=== PATIENT | female | born 1960 | race Caucasian/White ===

== ENCOUNTER 2019-05-30 10:25 | Emergency (ER) | payer BC ==
[~2019-05-30] VITALS: Ht 162.6 cm; Wt 68.0 kg
[~2019-05-30 10:25] MED LIST: CELE-193 PO; CYCL-1 PO; LEVO175T2 PO; ROSU20TA2 PO; SUMA100T16 PO
[2019-05-30 10:54] LABS: BASOPHILS # (AUTO) 0.1 X10'3 (0-0.2); BASOPHILS % (AUTO) 1.4 % (0-1); EOSINOPHILS # (AUTO) 0.2 X10'3 (0-0.9); EOSINOPHILS % (AUTO) 3.1 % (0-6); HEMATOCRIT 42.8 % (35.0-45.0); HEMOGLOBIN 14.6 g/dl (12.0-16.0); LYMPHOCYTES # (AUTO) 1.4 X10'3 (1.1-4.8); MEAN CORPUSCULAR HEMOGLOBIN 33.1 PG (27.0-31.0); MEAN CORPUSCULAR HGB CONC 34.2 g/dL (33.0-36.5); MEAN CORPUSCULAR VOLUME 96.8 FL (78-98); MEAN PLATELET VOLUME 7.5 FL (7.4-10.4); MONOCYTES # (AUTO) 0.5 X10'3 (0-0.9); MONOCYTES % (AUTO) 6.4 % (2-12); NEUTROPHILS # (AUTO) 5.3 X10'3 (1.8-7.7); NEUTROPHILS % (AUTO) 70.1 % (42-75); PLATELET COUNT 345 X10'3 (140-440); RED BLOOD COUNT 4.42 X10'6 (4.20-5.60); RED CELL DISTRIBUTION WIDTH 12.9 % (11.5-14.5); WHITE BLOOD COUNT 7.6 X10'3 (4.5-11.0)
[2019-05-30 11:15] LABS: ALANINE AMINOTRANSFERASE 35 U/L (12-78); ALBUMIN 3.7 G/DL (3.4-5.0); ALKALINE PHOSPHATASE 119 IU/L (46-116); AMYLASE 63 U/L (25-115); ANION GAP 8 (8-16); ASPARTATE AMINO TRANSFERASE 18 U/L (10-37); BILIRUBIN,TOTAL 0.4 MG/DL (0.1-1.0); BLOOD UREA NITROGEN 8 MG/DL (7-18); BUN/CREATININE RATIO 8.4 (6.6-38.0); CALCIUM 9.6 MG/DL (8.5-10.1); CHLORIDE 106 MMOL/L (99-107); CREATININE 0.95 MG/DL (0.40-0.90); GLUCOSE 92 MG/DL (70-104); LIPASE 108 U/L (73-393); POTASSIUM 4.3 MMOL/L (3.5-5.1); SODIUM 140 MMOL/L (135-145); TOTAL CARBON DIOXIDE 26.2 MMOL/L (24-32); TOTAL PROTEIN 7.5 G/DL (6.4-8.2); eGFR 60 ML/MIN
[2019-05-30] MEDS ORDERED: ondansetron/PF 4mg/2ml inj IV ONE (11:20)
[2019-05-30] MEDS ORDERED: ketorolac trometh. 30mg/ml inj. IV ONE (11:20)
[2019-05-30] MEDS ORDERED: normal saline 1000ML IV soln IVB ONE (11:20)
[2019-05-30 11:39] LABS: CLARITY,URINE CLEAR (Clear); COLOR,URINE YELLOW (Yellow); GLUCOSE, URINE NEGATIVE (Neg); KETONES,URINE NEGATIVE (Neg); LEUKOCYTE ESTERASE ,URINE NEGATIVE (Neg); NITRITES, URINE NEGATIVE (Neg); OCCULT BLOOD,URINE NEGATIVE (Neg); PH,URINE 6.5 (4.8-8.0); PROTEIN,URINE NEGATIVE (Neg); UROBILINOGEN,URINE 0.2 E.U/dL (0.2-1.0)
[2019-05-30 11:42] LABS: UA COLLECTION TYPE CLN CATCH MIDSTREAM
--- NOTE | 2019-05-30 12:01 | NUR ---
PT TO CT VIA WHEELCHAIR PER ORDERS NOW
--- NOTE | 2019-05-30 12:43 | NUR ---
TIM NOTIFIED PT PAIN 04/18, RECEIVED VERBAL ORDER FOR 4 MG IV MORPHINE ONCE NOW, MIKE WILLIS
[2019-05-30] MEDS ORDERED: morphine 4 MG/ML inj SYRINge IV ONE (12:45)
[2019-05-30] MEDS ORDERED: ONDA4TAB6 PO (13:26)
[2019-05-30] MEDS ORDERED: HYDR-4383 PO (13:26)
[2019-05-30 13:40] VITALS: BP 160/91
== END 2019-05-30 13:35 | disposition home or self-care (01) ==
LOC: ER 10:26
DX: K80.20 Calculus of gallbladder without cholecystitis without obstruction (principal); R11.2 Nausea with vomiting, unspecified; R19.7 Diarrhea, unspecified; E78.00 Pure hypercholesterolemia, unspecified; Z90.710 Acquired absence of both cervix and uterus; Z98.51 Tubal ligation status; Z98.890 Other specified postprocedural states; Z88.0 Allergy status to penicillin; Z88.2 Allergy status to sulfonamides; Z79.899 Other long term (current) drug therapy
CPT/HCPCS: 36415; 74176; 80053; 81003; 82150; 83690; 85025; 85610; 96361; 96374; 96375; 99284; J1885; J2270; J2405; J7030

== ENCOUNTER 2019-06-08 10:22 | Emergency (ER) | payer BC ==
[~2019-06-08] VITALS: Ht 162.6 cm; Wt 67.4 kg
[~2019-06-08 10:22] MED LIST changes: +HYDR-4383 PO; +ONDA4TAB6 PO
[2019-06-08 11:03] LABS: BASOPHILS # (AUTO) 0.1 X10'3 (0-0.2); BASOPHILS % (AUTO) 1.3 % (0-1); EOSINOPHILS # (AUTO) 0.2 X10'3 (0-0.9); EOSINOPHILS % (AUTO) 4.3 % (0-6); HEMATOCRIT 44.8 % (35.0-45.0); HEMOGLOBIN 15.2 g/dl (12.0-16.0); LYMPHOCYTES # (AUTO) 1.2 X10'3 (1.1-4.8); MEAN CORPUSCULAR HEMOGLOBIN 32.9 PG (27.0-31.0); MONOCYTES # (AUTO) 0.4 X10'3 (0-0.9); MONOCYTES % (AUTO) 7.8 % (2-12); NEUTROPHILS # (AUTO) 3.7 X10'3 (1.8-7.7); NEUTROPHILS % (AUTO) 65.6 % (42-75); PLATELET COUNT 370 X10'3 (140-440); RED BLOOD COUNT 4.62 X10'6 (4.20-5.60); RED CELL DISTRIBUTION WIDTH 12.7 % (11.5-14.5); WHITE BLOOD COUNT 5.6 X10'3 (4.5-11.0)
[2019-06-08 11:04] LABS: CLARITY,URINE CLEAR (Clear); COLOR,URINE YELLOW (Yellow); GLUCOSE, URINE NEGATIVE (Neg); KETONES,URINE NEGATIVE (Neg); LEUKOCYTE ESTERASE ,URINE SMALL (Neg); NITRITES, URINE NEGATIVE (Neg); OCCULT BLOOD,URINE NEGATIVE (Neg); PROTEIN,URINE NEGATIVE (Neg); UROBILINOGEN,URINE 0.2 E.U/dL (0.2-1.0)
[2019-06-08 11:16] LABS: UA COLLECTION TYPE CLN CATCH MIDSTREAM
[2019-06-08 11:18] LABS: ALANINE AMINOTRANSFERASE 35 U/L (12-78); ALKALINE PHOSPHATASE 121 IU/L (46-116); ANION GAP 10 (8-16); ASPARTATE AMINO TRANSFERASE 22 U/L (10-37); BILIRUBIN,TOTAL 0.5 MG/DL (0.1-1.0); BLOOD UREA NITROGEN 9 MG/DL (7-18); BUN/CREATININE RATIO 8.6 (6.6-38.0); CALCIUM 9.6 MG/DL (8.5-10.1); CHLORIDE 105 MMOL/L (99-107); CREATININE 1.05 MG/DL (0.40-0.90); GLUCOSE 93 MG/DL (70-104); SODIUM 140 MMOL/L (135-145); TOTAL CARBON DIOXIDE 25.4 MMOL/L (24-32); TOTAL PROTEIN 7.9 G/DL (6.4-8.2); eGFR 54 ML/MIN
[2019-06-08 11:20] LABS: RBC,URINE NONE SEEN /HPF (0-2); WBC,URINE 0-4 /HPF (0-4)
[2019-06-08 11:21] LABS: BACTERIA,URINE FEW /HPF (Neg); MUCUS STRANDS NONE SEEN /LPF (Neg); SQUAMOUS EPITHELIAL CELL,UR MODERATE /LPF (FEW)
[2019-06-08 11:23] LABS: RENAL CELLS, URINE FEW /HPF; TRANSITIONAL EPI CELLS,URINE FEW /HPF; WBC CLUMPS,URINE FEW /HPF (NEGATIVE)
[2019-06-08] MEDS ORDERED: ketorolac trometh. 30mg/ml inj. IV ONE (11:40)
[2019-06-08] MEDS ORDERED: morphine 4 MG/ML inj SYRINge IV ONE (11:40)
[2019-06-08] MEDS ORDERED: mag hydrox/Alum hydrox/simeth 30ml oral suspension PO ONE (11:40)
[2019-06-08] MEDS ORDERED: normal saline 1000ml 1,000 ML IV ONE (11:40)
[2019-06-08] MEDS ORDERED: ondansetron/PF 4mg/2ml inj IV ONE (11:40)
[2019-06-08] MEDS ORDERED: LIDOcaine Viscous 15ml cup PO ONE (11:40)
[2019-06-08] MEDS ORDERED: pantoprazole 40 MG vial IV ONE (11:45)
[2019-06-08] MEDS ORDERED: famotidine/PF 10 mg/ml inj IV ONE (11:45)
[2019-06-08 12:09] LABS: LIPASE 107 U/L (73-393)
[2019-06-08] MEDS ORDERED: CefTRIAXone/D5W-Rocephin 1gm 50 ML IV ONE (12:25)
[2019-06-08] MEDS ORDERED: ciprofloxacin 250mg tablet PO ONE (12:45)
[2019-06-08] MEDS ORDERED: HYDROcodone/acetaminophen 5mg/325mg tablet PO ONE (13:15)
[2019-06-08] MEDS ORDERED: proCHLORperazine 10 MG/2 ml inj IV ONE (13:15)
[2019-06-08] MEDS ORDERED: HYDR-3965 PO (13:38)
[2019-06-08] MEDS ORDERED: CIPR-230 PO (13:38)
[2019-06-08] MEDS ORDERED: ONDA8TAB6 PO (13:38)
[2019-06-08] MEDS ORDERED: PANT-47 PO (13:38)
[2019-06-08 13:56] VITALS: BP 143/94
== END 2019-06-08 13:57 | disposition home or self-care (01) ==
LOC: ER 10:23
DX: K80.20 Calculus of gallbladder without cholecystitis without obstruction (principal); N39.0 Urinary tract infection, site not specified; R10.11 Right upper quadrant pain; E78.00 Pure hypercholesterolemia, unspecified; Z98.890 Other specified postprocedural states; Z90.710 Acquired absence of both cervix and uterus; Z98.51 Tubal ligation status; Z88.0 Allergy status to penicillin; Z88.2 Allergy status to sulfonamides; Z88.5 Allergy status to narcotic agent; Z79.899 Other long term (current) drug therapy
CPT/HCPCS: 36415; 80053; 81001; 83690; 84145; 85025; 85610; 87088; 96374; 96375; 99284; C9113; J0780; J1885; J2270; J2405; J3490; J7030

== ENCOUNTER 2019-06-26 12:21 | Day surgery (SDC) | payer BC ==
[~2019-06-26] VITALS: Ht 162.6 cm; Wt 66.0 kg
[2019-06-26] VITALS (8 sets, daily range): BP systolic 124–159; BP diastolic 71–95
[~2019-06-26 12:21] MED LIST changes: +CIPR-230 PO; +HYDR-3965 PO; +INDOCYANINE GREEN 25 MG VIAL IV ONE; +ONDA8TAB6 PO; +PANT-47 PO; +clindamycin-Cleocin 900mg/D5W 50 ML IV ONE
[2019-06-26 13:01] LABS: BASOPHILS # (AUTO) 0.1 X10'3 (0-0.2); BASOPHILS % (AUTO) 1.3 % (0-1); EOSINOPHILS # (AUTO) 0.4 X10'3 (0-0.9); EOSINOPHILS % (AUTO) 4.7 % (0-6); LYMPHOCYTES # (AUTO) 1.7 X10'3 (1.1-4.8); LYMPHOCYTES % (AUTO) 21.5 % (21-51); MEAN CORPUSCULAR HEMOGLOBIN 32.7 PG (27.0-31.0); MEAN CORPUSCULAR HGB CONC 33.4 g/dL (33.0-36.5); MEAN CORPUSCULAR VOLUME 97.9 FL (78-98); MEAN PLATELET VOLUME 8.5 FL (7.4-10.4); MONOCYTES # (AUTO) 0.5 X10'3 (0-0.9); MONOCYTES % (AUTO) 6.7 % (2-12); NEUTROPHILS # (AUTO) 5.3 X10'3 (1.8-7.7); NEUTROPHILS % (AUTO) 65.8 % (42-75); PRE OP HEMATOCRIT 45.9 % (35.0-45.0); PRE OP HEMOGLOBIN 15.3 g/dL (12.0-16.0); PRE OP PLATELET COUNT 371 X10'3 (140-440); RED BLOOD COUNT 4.69 X10'6 (4.20-5.60); RED CELL DISTRIBUTION WIDTH 13.1 % (11.5-14.5)
[2019-06-26 13:29] LABS: CHLORIDE 107 MMOL/L (99-107); PRE OP GLUCOSE 90 MG/DL (70-104); PRE OP POTASSIUM 4.5 MMOL/L (3.4-5.1); PRE OP SODIUM 142 MMOL/L (135-145); TOTAL CARBON DIOXIDE 23.5 MMOL/L (24-32)
[2019-06-26 13:30] LABS: ALBUMIN/GLOBULIN RATIO 1.1 (1.1-1.5); ALKALINE PHOSPHATASE 112 IU/L (46-116); BLOOD UREA NITROGEN 8 MG/DL (7-18); BUN/CREATININE RATIO 9.2 (6.6-38.0); CALCIUM 9.9 MG/DL (8.5-10.1); CREATININE 0.87 MG/DL (0.40-0.90); PRE OP ALT 28 U/L (30-65); PRE OP ANION GAP 12 (8-16); PRE OP AST 19 U/L (10-37); PRE OP BILIRUB, TOTAL 0.4 MG/DL (0.0-1.0); TOTAL PROTEIN 7.8 G/DL (6.4-8.2); eGFR 67 ML/MIN
[2019-06-26] MEDS ORDERED: ringers solution, lacted 1,000 ML IV SCH (14:13)
[2019-06-26] MEDS ORDERED: fentaNYL/PF 50MCG/1 ML 2ML syringe IV PRN ×2 (14:15)
[2019-06-26] MEDS ORDERED: ondansetron/PF 4mg/2ml inj IV PRN (14:15)
[2019-06-26] MEDS ORDERED: hydrALAZINE 20mg/ml inj. IV PRN (14:15)
[2019-06-26] MEDS ORDERED: labetalol 20mg/4ml (5mg/ml) syringe IV PRN (14:15)
[2019-06-26] MEDS ORDERED: morphine 4 MG/ML inj SYRINge IV PRN (14:15)
[2019-06-26] MEDS ORDERED: BUPIVAcaine/PF 2.5 mg/ml (0.25%) 30ml vial ONE (14:21)
[2019-06-26] MEDS ORDERED: LIDOcaine 1% 30ml preserv. free vial ONE (14:21)
[2019-06-26] MEDS ORDERED: ondansetron/PF 4mg/2ml inj ONE (14:34)
[2019-06-26] MEDS ORDERED: glycopyrrolate 0.2mg/ml inj ONE (14:34)
[2019-06-26] MEDS ORDERED: midazolam 2 mg/2 ml injection ONE (14:34)
[2019-06-26] MEDS ORDERED: fentaNYL/PF 50MCG/1 ML 2ML syringe ONE (14:34)
[2019-06-26] MEDS ORDERED: neostigmine methylsulfate 1 MG/ML 10ml vial ONE (14:34)
[2019-06-26] MEDS ORDERED: sevoflurane 250ml liquid IH ONE (14:34)
[2019-06-26] MEDS ORDERED: LIDOcaine 1%/PF 5ML 10 MG/ML VIAL ONE (14:35)
[2019-06-26] MEDS ORDERED: rocuronium 10mg/ml inj IV ONE (14:35)
[2019-06-26] MEDS ORDERED: propofol inj 20 ML IV ONE (14:35)
[2019-06-26] MEDS ORDERED: dexamethasone sod phosphate 4mg/ml inj. ONE (14:44)
[2019-06-26] MEDS ORDERED: sugammadex 200mg/2ml injection IV ONE (15:41)
--- NOTE | 2019-06-26 15:46 | NUR ---
Received from OR via , accompanied by Anesthesiologist DR WALKER and report given by Anesthesiolgist. AWAKENS TO VOICE. VITALS STABLE. DRESSINGS DI. JUMA PAIN. ABD SOFT.
[2019-06-26] MEDS: morphine 4 MG/ML inj SYRINge IV PRN ×2 (16:02→16:12)
[2019-06-26] MEDS ORDERED: HYDROcodone/acetaminophen 10/325mg tab PO ONE (16:05)
[2019-06-26] MEDS ORDERED: acetaminophen 1,000mg/100ml IV 100 ML IV ONE (16:30)
[2019-06-26] MEDS ORDERED: ketorolac trometh. 30mg/ml inj. IV ONE (16:30)
--- NOTE | 2019-06-26 17:06 | NUR ---
AWAKE AND ORIENTED. VITALS STABLE. DRESSING DI. STATES PAIN IMPROVING. HOME WITH HER SPOUSE AT THIS TIME.
[2019-06-27] MEDS ORDERED: ringers solution, lacted 1,000 ML IV SCH (05:00)
[2019-06-27] MEDS ORDERED: famotidine 20mg tablet PO ONE (05:30)
== END 2019-06-26 17:06 | disposition home or self-care (01) ==
LOC: PAS 12:21
PROVIDERS: ATTEND Surgery
DX: K80.10 Calculus of gallbladder with chronic cholecystitis without obstruction (principal); F17.210 Nicotine dependence, cigarettes, uncomplicated; G43.909 Migraine, unspecified, not intractable, without status migrainosus; F32.9 Major depressive disorder, single episode, unspecified; F41.9 Anxiety disorder, unspecified; E78.5 Hyperlipidemia, unspecified; E03.9 Hypothyroidism, unspecified; M19.90 Unspecified osteoarthritis, unspecified site; Z88.0 Allergy status to penicillin; Z88.5 Allergy status to narcotic agent; Z88.2 Allergy status to sulfonamides; Z79.899 Other long term (current) drug therapy; Z98.51 Tubal ligation status; Z90.710 Acquired absence of both cervix and uterus; Z98.890 Other specified postprocedural states
CPT/HCPCS: 36415; 47563; 74300; 80053; 85025; 93005; C9399; J0131; J1100; J1885; J2001; J2250; J2270; J2405; J2704; J3010; J3490; J7120; S2900; A4215; A4618; A7000; J2710

== ENCOUNTER 2024-12-10 21:22 | Emergency (ER) | payer BC ==
[~2024-12-10] VITALS: Ht 165.1 cm; Wt 100.0 kg
[~2024-12-10 21:22] MED LIST changes: -CIPR-230 PO; -HYDR-3965 PO; -HYDR-4383 PO; -INDOCYANINE GREEN 25 MG VIAL IV ONE; -ONDA8TAB6 PO; -PANT-47 PO; -clindamycin-Cleocin 900mg/D5W 50 ML IV ONE
[2024-12-10 22:11] LABS: BASOPHILS % (AUTO) 1.1 % (0-1); EOSINOPHILS # (AUTO) 0.3 X10'3 (0-0.9); EOSINOPHILS % (AUTO) 7.8 % (0-6); HEMOGLOBIN 14.8 g/dl (12.0-16.0); LYMPHOCYTES # (AUTO) 1.1 X10'3 (1.1-4.8); MEAN CORPUSCULAR HEMOGLOBIN 32.5 PG (27.0-31.0); MEAN CORPUSCULAR HGB CONC 34.3 g/dL (33.0-36.5); MEAN CORPUSCULAR VOLUME 94.7 FL (78-98); MONOCYTES # (AUTO) 0.4 X10'3 (0-0.9); MONOCYTES % (AUTO) 9.9 % (2-12); NEUTROPHILS # (AUTO) 2.4 X10'3 (1.8-7.7); NEUTROPHILS % (AUTO) 56.2 % (42-75); PLATELET COUNT 262 X10'3 (140-440); RED BLOOD COUNT 4.54 X10'6 (4.20-5.60); RED CELL DISTRIBUTION WIDTH 12.9 % (11.5-14.5); WHITE BLOOD COUNT 4.4 X10'3 (4.5-11.0)
[2024-12-10 22:33] LABS: ALANINE AMINOTRANSFERASE 27 U/L (12-78); ALBUMIN 3.4 G/DL (3.4-5.0); ALBUMIN/GLOBULIN RATIO 0.8 (1.1-1.5); ALKALINE PHOSPHATASE 161 IU/L (46-116); ANION GAP 10 (8-16); ASPARTATE AMINO TRANSFERASE 18 U/L (10-37); BILIRUBIN,TOTAL 0.7 MG/DL (0.1-1.0); BLOOD UREA NITROGEN 16 MG/DL (7-18); BUN/CREATININE RATIO 13.4 (10.0-20.0); CALCIUM 9.6 MG/DL (8.5-10.1); CHLORIDE 105 MMOL/L (99-107); CREATININE 1.19 MG/DL (0.40-0.90); GLUCOSE 107 MG/DL (70-104); POTASSIUM 4.5 MMOL/L (3.5-5.1); PRO BRAIN NATRIURETIC PEPTIDE < 30 PG/ML (0-125); SODIUM 141 MMOL/L (135-145); TOTAL CARBON DIOXIDE 26.4 MMOL/L (24-32); TOTAL PROTEIN 7.8 G/DL (6.4-8.2); eCRCL 42 ML/MIN; eGFR 46 ML/MIN
[2024-12-10] MEDS: ipratropium/albuterol 3ml nebule NEB ONE (23:38)
[2024-12-10 23:39] VITALS: PULSE 77; RESP 18; O2SAT 95
[2024-12-10 23:46] VITALS: PULSE 77; RESP 16; O2SAT 96
[2024-12-11] MEDS ORDERED: ALBU8HFA PO (00:15)
[2024-12-11] MEDS ORDERED: PRED20TA PO (00:15)
[2024-12-11] MEDS ORDERED: DOXY100C2 PO (00:15)
[2024-12-11] MEDS: DOXYCYCLINE 100MG CAPSULE PO STA (00:16)
[2024-12-11] MEDS: dexamethasone sod phosphate 10mg/ml inj PO STA (00:17)
[2024-12-11 00:24] VITALS: BP 112/74; PULSE 75; RESP 18; TEMP 98.6; O2SAT 98
== END 2024-12-11 00:26 | disposition home or self-care (01) ==
LOC: ER 21:22
DX: J20.9 Acute bronchitis, unspecified (principal); E78.00 Pure hypercholesterolemia, unspecified; Z20.822 Contact with and (suspected) exposure to COVID-19; Z88.0 Allergy status to penicillin; Z88.2 Allergy status to sulfonamides; Z88.5 Allergy status to narcotic agent; Z88.8 Allergy status to other drugs, medicaments and biological substances; Z90.710 Acquired absence of both cervix and uterus; Z98.890 Other specified postprocedural states; Z98.51 Tubal ligation status
CPT/HCPCS: 36415; 71045; 80053; 83880; 84484; 85025; 87502; 87503; 87811; 93005; 94640; 99285; J1100; 94760